=== PATIENT | female | born 2000 | race Caucasian/White ===

== ENCOUNTER 2020-07-16 23:00 | Emergency (ER) | payer SELFPAY ==
[~2020-07-16] VITALS: Ht 157.5 cm; Wt 67.0 kg
--- NOTE | 2020-07-17 00:39 | PHYS DOC ---
Past History Past Medical History asberger's (autism), depression Past Surgical History toe surgery Smoking: Cigarettes Alcohol Use: None Drug Use: None General Adult EDM: Chief Complaint: ABDOMINAL PAIN HPI: HPI: Patient is a 19 year old female who presents for evaluation of right upper and lower abdominal discomfort. Onset over the past 4 to 5 days. Patient has had episodes of nausea vomiting but no diarrhea. She has been feeling i ntermittently dizzy. Patient did have some recent urgency with urination. Patient has seen her physician, Dr. Vergara but had negative urinalysis in the past several days. Patient is otherwise benign-appearing. No reported fevers and chills Review of Systems: Review of Systems: Constitutional: Denies fever or chills Eyes: Denies change in visual acuity HENT: Denies nasal congestion or sore throat Respiratory: Denies cough or shortness of breath Cardiovascular: Denies chest pain or edema GI: right sided abdominal pain with nausea and vomiting, no bloody stools or diarrhea : Denies dysuria Musculoskeletal: Denies back pain or joint pain Integument: Denies rash Neurologic: Denies headache, focal weakness or sensory changes Endocrine: Denies polyuria or polydipsia Lymphatic: Denies swollen glands Psychiatric: has chronic depression and anxiety Heart Score: Risk Factors: Risk Factors: DM, Current or recent (<one month) smoker, HTN, HLP, family history of CAD, obesity. Risk Scores: Score 0 - 3: 2.5% MACE over next 6 weeks - Discharge Home Score 4 - 6: 20.3% MACE over next 6 weeks - Admit for Clinical Observation Score 7 - 10: 72.7% MACE over next 6 weeks - Early Invasive Strategies Current Medications: Current Meds: Current Medications Medications (Trade) Dose Ordered Sig/[facility] Start Time Stop Time Status Last Admin Dose Admin Ondansetron HCl (Zofran) 4 mg 1X ONCE 07/17/20 00:00 07/17/20 00:01 UNV Sodium Chloride 1,000 ml @ 1,000 mls/hr Q1H 07/16/20 23:59 07/17/20 00:58 UNV Physical Exam: PE: Constitutional: Well developed, well nourished, mild acute distress. [] HENT: Normocephalic, atraumatic, bilateral external ears normal, oropharynx moist, no oral exudates, nose normal. [] Eyes: PERRL, EOMI, conjunctiva normal, no discharge. [] Neck: Normal range of motion, no tenderness, supple, no stridor. [] Cardiovascular:Heart rate regular rhythm, no murmur [] Lungs & Thorax: Bilateral breath sounds clear to auscultation [] Abdomen: Bowel sounds normal, soft, mild right upper and lower abdominal tenderness, no masses. [] Skin: Warm, dry, no erythema, no rash. [] Back: No tenderness, no CVA tenderness. [] Extremities: No tenderness, no cyanosis, ROM intact, no edema. [] Neurologic: Alert and oriented X 3, normal motor function, normal sensory function, no focal deficits noted. [] Psychologic: Affect abnormal, judgement normal, mood abnormal. [] Current Patient Data: Labs: Laboratory Tests Test 07/17/20 00:15 07/17/20 00:23 Urine Collection Type Void Urine Color Yellow Urine Clarity Cloudy Urine pH 6.5 Urine Specific [place] 1.025 Urine Protein Neg Urine Glucose (UA) Neg mg/dL Urine Ketones (Stick) Neg mg/dL Urine Blood Neg Urine Nitrite Neg Urine Bilirubin Neg Urine Urobilinogen Dipstick 1.0 mg/dL Urine Leukocyte Esterase Mod Urine RBC Occ /HPF Urine WBC 11-20 /HPF Urine Squamous Epithelial Cells Many /LPF Urine Bacteria Mod /HPF White Blood Count 14.5 x10^3/uL Red Blood Count 4.98 x10^6/uL Hemoglobin 15.4 g/dL Hematocrit 46.3 % Mean Corpuscular Volume 93 fL Mean Corpuscular Hemoglobin 31 pg Mean Corpuscular Hemoglobin Concent 33 g/dL Red Cell Distribution Width 12.7 % Platelet Count 169 x10^3/uL Neutrophils (%) (Auto) 65 % Lymphocytes (%) (Auto) 25 % Monocytes (%) (Auto) 7 % Eosinophils (%) (Auto) 3 % Basophils (%) (Auto) 1 % Neutrophils # (Auto) 9.5 x10^3uL Lymphocytes # (Auto) 3.6 x10^3/uL Monocytes # (Auto) 1.0 x10^3/uL Eosinophils # (Auto) 0.4 x10^3/uL Basophils # (Auto) 0.1 x10^3/uL Sodium Level 140 mmol/L Potassium Level 4.3 mmol/L Chloride Level 105 mmol/L Carbon Dioxide Level 24 mmol/L Anion Gap 11 Blood Urea Nitrogen 16 mg/dL Creatinine 0.8 mg/dL Estimated GFR (Cockcroft-Gault) 92.4 BUN/Creatinine Ratio 20 Glucose Level 98 mg/dL Calcium Level 9.5 mg/dL Total Bilirubin 0.1 mg/dL Aspartate Amino Transf (AST/SGOT) 5 U/L Alanine Aminotransferase (ALT/SGPT) 20 U/L Alkaline Phosphatase 61 U/L Total Protein 7.6 g/dL Albumin 4.0 g/dL Albumin/Globulin Ratio 1.1 Lipase 120 U/L Serum Test, Qualitative Negative Current Medications Medications (Trade) Dose Ordered Sig/Apoorva Route PRN Reason Start Time Stop Time Status Last Admin Dose Admin Sodium Chloride 1,000 ml @ 1,000 mls/hr Q1H IV 07/17/20 01:00 07/17/20 01:59 DC 07/17/20 00:52 Ondansetron HCl (Zofran) 4 mg 1X ONCE IVP 07/17/20 01:00 07/17/20 01:01 DC 07/17/20 00:52 Iohexol (Omnipaque 300 Mg/ml) 75 ml 1X ONCE IV 07/17/20 02:00 07/17/20 02:01 DC 07/17/20 02:22 Info (Do NOT chart on this entry -- for MONITORING) 1 each PRN DAILY PRN MC SEE COMMENTS 07/17/20 01:45 07/19/20 01:44 EKG: EKG: [] Radiology/Procedures: Radiology/Procedures: [address] [address] IMAGING REPORT Signed PATIENT: NISHI BENITEZ ACCOUNT: [id number] : 2000 LOCATION: ER AGE: 19 SEX: F EXAM STATUS: REG ER ORD. PHYSICIAN: DORINA AGUIRRE DO REASON: OMNI 300,75ML IV.RT SIDE ABD PAIN,LEUKOCYTOSIS.NO HX INJURY/SX PROCEDURE: CT ABD PELV W/ IV CONTRST ONLY INDICATION: Reason: OMNI 300,75ML IV.RT SIDE ABD PAIN,LEUKOCYTOSIS.NO HX INJURY/SX / Spl. Instructions: / History: COMPARISON: None. TECHNIQUE: Axial CT images obtained through the abdomen and pelvis. One or more of the following individualized dose reduction techniques were utilized for this examination: 1. Automated exposure control; 2. Adjustment of the mA and/or kV according to patient size; 3. Use of iterative reconstruction technique. FINDINGS: Abdominal aorta is not aneurysmal. There is mild haziness the fat in the retroperitoneum adjacent to abdominal aorta. No intrahepatic bile duct dilation. Gallbladder wall thickening is seen with multiple gallstones. No peripancreatic fluid collection. Spleen unremarkable. No hydronephrosis. Urinary bladder is partially distended. Small amount of free fluid in the pelvis. Rim enhancing lesion right ovary measuring 18 mm. Could be from causes such as corpus luteum cyst. No periappendiceal inflammatory changes are seen. No dilated loops of bowel to suggest obstruction. IMPRESSION: * The gallbladder has stones within with wall thickening suspected. Would correlate with symptoms in the region and if further evaluation is desired ultrasound could further evaluate for cholecystitis. * There is a small amount haziness to the fat in the retroperitoneum adjacent to the abdominal aorta. Nonspecific in nature with some possible causes including mild aortitis or retroperitoneal fibrosis. Electronically signed by: Tanya Zaragoza MD (07/17/2020 3:25 AM) [id number] DICTATED AND SIGNED BY: TANYA ZARAGOZA MD DATE: 07/17/20 0325 CC: ELISA RODRIGUEZ DO; DORINA AGUIRRE DO ~ [] Course & Med Decision Making: Course & Med Decision Making Pertinent Labs and Imaging studies reviewed. (See chart for details) 0335 stable, reassessed multiple times. Patient's pain is under control. CT scan abdomen pelvis shows the patient has likely cholecystitis she certainly has gallstones present and some gallbladder wall thickening. No evidence of pancreatitis at this time. Close follow-up and low fat dietary instructions given. Furthermore patient will be given prescription for Bactrim to cover her incidental urinary tract infection. Patient advised to follow-up with the doctor she will likely need an outpatient sonogram of her gallbladder. Lucien Disclaimer: Lucien Disclaimer: This electronic medical record was generated, in whole or in part, using a voice recognition dictation system. Departure Departure: Impression: Primary Impression: Cholecystitis Additional Impressions: Acute urinary tract infection Right sided abdominal pain Disposition: 01 HOME/RESIDENCE PRIOR TO ADM Condition: STABLE Referrals: ELISA RODRIGUEZ DO (PCP) Patient Instructions: Cholecystitis, [id number], Urinary Tract Infection, [id number] Additional Instructions: Drink plenty fluids, rest, strict low fat bland diet recommended. Call and see your doctor about getting a gallbladder sonogram scheduled. In the meantime take the antibiotic as directed for your bladder infection. No appendicitis seen on your CT scan Scripts Ondansetron Hcl (ZOFRAN) 4 Mg Tablet 1 TAB PO PRN Q6HRS PRN for NAUSEA, #8 TAB Prov: DORINA AGUIRRE DO 07/17/20 Sulfamethoxazole/Trimethoprim (BACTRIM DS TABLET) 1 Each Tablet 1 TAB PO BID for UTI for 7 Days, #14 TAB 0 Refills Prov: DORINA AGUIRRE DO 07/17/20 Justification of Admission: Justification of Admission: Justification of Admission Dx: N/A DORINA AGUIRRE DO Jul 17, 2020 00:39
[2020-07-17 00:52] LABS: BASO # 0.1 x10^3/uL (0.0-0.2); BASO % 1 % (0-3); EOS # 0.4 x10^3/uL (0.0-0.7); EOS % 3 % (0-3); HEMATOCRIT 46.3 % (36.0-47.0); HEMOGLOBIN 15.4 g/dL (12.0-15.5); LYMPH # 3.6 x10^3/uL (1.0-4.8); LYMPH % 25 % (24-48); MEAN CORPUSCULAR HEMOGLOBIN 31 pg (25-35); MEAN CORPUSCULAR HGB CONC 33 g/dL (31-37); MEAN CORPUSCULAR VOLUME 93 fL (79-100); MONO % 7 % (0-9); NEUT # 9.5 x10^3uL (1.8-7.7); NEUT % 65 % (31-73); PLATELET COUNT 169 x10^3/uL (140-400); RED BLOOD COUNT 4.98 x10^6/uL (3.50-5.40); RED CELL DISTRIBUTION WIDTH 12.7 % (11.5-14.5); WHITE BLOOD COUNT 14.5 x10^3/uL (4.0-11.0)
[2020-07-17 00:57] LABS: PREG TEST PT QUAL NEGATIVE (NEG)
[2020-07-17 00:58] LABS: CALCIUM 9.5 mg/dL (8.5-10.1); CREATININE 0.8 mg/dL (0.6-1.0); GFR 92.4; POTASSIUM 4.3 mmol/L (3.5-5.1)
[2020-07-17] MEDS ORDERED: ONDANSETRON PF 4 MG/2 ML VIAL. IVP ONE (01:00)
[2020-07-17] MEDS ORDERED: IV NORMAL SALINE 1,000ML 1,000 ML IV SCH (01:00)
[2020-07-17 01:04] LABS: ALBUMIN/GLOBULIN RATIO 1.1 (1.0-1.7); TOTAL BILIRUBIN 0.1 mg/dL (0.2-1.0); TOTAL PROTEIN 7.6 g/dL (6.4-8.2)
[2020-07-17 01:09] LABS: BACTERIA,URINE MOD /HPF (0-FEW); BILIRUBIN,URINE NEG (NEG); CLARITY,URINE CLOUDY; COLOR,URINE YELLOW; GLUCOSE,URINE NEG (NEG); NITRITE,URINE NEG (NEG); RBC,URINE OCC /HPF (0-2); SQUAMOUS EPITHELIAL CELL,UR MANY /LPF
[2020-07-17] MEDS ORDERED: CONTRAST GIVEN. MC PRN (01:45)
[2020-07-17] MEDS ORDERED: IOHEXOL 300 MG/ML 75 ML VIAL. IV ONE (02:00)
--- NOTE | 2020-07-17 03:27 | RAD ---
INDICATION: Reason: OMNI 300,75ML IV.RT SIDE ABD PAIN,LEUKOCYTOSIS.NO HX INJURY/SX / Spl. Instructions: / History: COMPARISON: None. TECHNIQUE: Axial CT images obtained through the abdomen and pelvis. One or more of the following individualized dose reduction techniques were utilized for this examination: 1. Automated exposure control; 2. Adjustment of the mA and/or kV according to patient size; 3. Use of iterative reconstruction technique. FINDINGS: Abdominal aorta is not aneurysmal. There is mild haziness the fat in the retroperitoneum adjacent to abdominal aorta. No intrahepatic bile duct dilation. Gallbladder wall thickening is seen with multiple gallstones. No peripancreatic fluid collection. Spleen unremarkable. No hydronephrosis. Urinary bladder is partially distended. Small amount of free fluid in the pelvis. Rim enhancing lesion right ovary measuring 18 mm. Could be from causes such as corpus luteum cyst. No periappendiceal inflammatory changes are seen. No dilated loops of bowel to suggest obstruction. IMPRESSION: * The gallbladder has stones within with wall thickening suspected. Would correlate with symptoms in the region and if further evaluation is desired ultrasound could further evaluate for cholecystitis. * There is a small amount haziness to the fat in the retroperitoneum adjacent to the abdominal aorta. Nonspecific in nature with some possible causes including mild aortitis or retroperitoneal fibrosis. Electronically signed by: Gustavo Chen MD (07/17/2020 3:25 AM) [id number]
[2020-07-17] MEDS ORDERED: ONDA4TAB7 PO (03:48)
[2020-07-17] MEDS ORDERED: SULF1TAB24 PO (03:48)
[2020-07-17] MEDS ORDERED: SMZ/TMP 800/160MG TABLET. PO ONE (04:00)
[2020-07-17 04:15] VITALS: BP 124/80
[2020-07-17] MEDS ORDERED: KETOROLAC 30 MG/ML VIAL. IVP ONE (04:15)
== END 2020-07-17 04:14 | disposition home or self-care (01) ==
LOC: ER 23:00
DX: K81.9 Cholecystitis, unspecified (principal); N39.0 Urinary tract infection, site not specified; F17.210 Nicotine dependence, cigarettes, uncomplicated; F32.9 Major depressive disorder, single episode, unspecified; R42 Dizziness and giddiness; R10.11 Right upper quadrant pain; R10.31 Right lower quadrant pain
CPT/HCPCS: 36415; 74177; 80053; 81001; 83690; 84703; 85025; 87086; 96361; 96374; 96375; 99285; J1885; J2405; J7030; Q9967; 87077